=== PATIENT | female | born 1990 | race Caucasian/White ===

== ENCOUNTER 2017-03-16 18:59 | Outpatient (CLI) | payer MEDICAID ==
[~2017-03-16] VITALS: Ht 165.1 cm; Wt 104.5 kg
[~2017-03-16 18:59] MED LIST: IBUP100T9 PO
[2017-03-16 19:22] VITALS: BP 130/78
== END 2017-03-16 20:28 | disposition home or self-care (01) ==
LOC: LDOP 18:59
PROVIDERS: ATTEND Student in an Organized Health Care Education/Training Program
DX: O26.893 Other specified pregnancy related conditions, third trimester (principal); O99.333 Smoking (tobacco) complicating pregnancy, third trimester; R10.9 Unspecified abdominal pain; F17.200 Nicotine dependence, unspecified, uncomplicated; Z3A.36 36 weeks gestation of pregnancy
CPT/HCPCS: 59025; 81003; 87086; 99211; G0463

== ENCOUNTER 2017-04-12 08:50 | Inpatient (IN) | payer MEDICAID ==
[~2017-04-12] VITALS: Ht 165.1 cm; Wt 105.5 kg
[2017-04-13] MEDS ORDERED: OXYTOCIN 30U/ 0.9% NaCL 500ML 500 ML IV PRN ×3 (08:16)
[2017-04-13] MEDS ORDERED: D5%-LACTATED RINGERS 1,000 ML IV SCH (08:16)
[2017-04-13] MEDS ORDERED: OXYTOCIN 30U/ 0.9% NaCL 500ML 500 ML IV ONE (08:16)
[2017-04-13] MEDS ORDERED: FENTANYL PF 100 MCG/2ML IV PRN (08:30)
[2017-04-13] MEDS ORDERED: FENTANYL PF 100 MCG/2ML IVPush PRN (08:30)
[2017-04-13] MEDS: LACTATED RINGERS 1,000 ML IV SCH ×2 (08:33→13:10)
[2017-04-13 08:45] LABS: BASOPHILS # (AUTO) 0.02 x10^3/uL (0-0.1); BASOPHILS % (AUTO) 0 % (0-1); EOSINOPHILS # (AUTO) 0.06 x10^3/uL (0-0.4); EOSINOPHILS % (AUTO) 1 % (1-7); LYMPHOCYTES % (AUTO) 16 % (22-44); MD NO; MEAN CORPUSCULAR HEMOGLOBIN 30.5 pg (27.0-34.8); MEAN CORPUSCULAR HGB CONC 33.8 g/dL (32.4-35.8); MEAN CORPUSCULAR VOLUME 90.1 fL (80-100); MEAN PLATELET VOLUME 8.7 fL (7.4-10.4); MONOCYTES # (AUTO) 0.64 x10^3/uL (0.2-0.8); MONOCYTES % (AUTO) 5 % (2-9); NEUTROPHILS # (AUTO) 9.98 x10^3/uL (1.8-6.8); NEUTROPHILS % (AUTO) 79 % (42-75); PLATELET COUNT 160 x10^3/uL (130-400); RED BLOOD COUNT 3.48 x10^6/uL (3.82-5.3); RED CELL DISTRIBUTION WIDTH 13.1 % (9.6-15.2)
[2017-04-13] MEDS ORDERED: PLEASE ENTER HEIGHT AND WEIGHT MC SCH (09:00)
[2017-04-13] MEDS ORDERED: LACTATED RINGERS 1,000 ML IVBOLUS ONE ×2 (09:30)
[2017-04-13] MEDS ORDERED: MISOPROSTOL 200 MCG TABLET ONE (10:48)
[2017-04-13] MEDS ORDERED: NEWBORN KIT ONE (10:48)
[2017-04-13] MEDS ORDERED: LIDOCAINE 1%, 10ML ONE (10:49)
[2017-04-13] MEDS ORDERED: OXYTOCIN 30U/ 0.9% NaCL 500ML 500 ML ONE ×2 (10:49→10:50)
[2017-04-13] MEDS ORDERED: FENTANYL/BUPIV./NS/PF 250 ML EPIDCONT ONE (10:52)
[2017-04-13] MEDS ORDERED: BUPIVACAINE 0.25% ONE ×2 (10:52→15:53)
[2017-04-13] MEDS ORDERED: FENTANYL PF 100 MCG/2ML ONE ×2 (10:52→15:14)
[2017-04-13] MEDS ORDERED: FENTANYL/BUPIV./NS/PF 250 ML EPIDCONT SCH (12:17)
[2017-04-13] MEDS ORDERED: LACTATED RINGERS 1,000 ML IV SCH (12:17)
[2017-04-13] MEDS ORDERED: EPHEDRINE 50 MG/ML, 1ML IVPush PRN (12:30)
[2017-04-13] MEDS ORDERED: SODIUM CITRATE/CITRIC ACID 30 ML UDC PO ONE (12:30)
[2017-04-13] MEDS ORDERED: LACTATED RINGERS 1,000 ML IVBOLUS PRN (12:30)
[2017-04-13] MEDS ORDERED: ONDANSETRON 2MG/ML, 2ML IVPush PRN (12:30)
[2017-04-13] MEDS: ONDANSETRON 2MG/ML, 2ML IVPush PRN ×2 (16:38→20:51)
[2017-04-13] MEDS ORDERED: ONDANSETRON 2MG/ML, 2ML ONE (19:42)
[2017-04-13] MEDS ORDERED: SODIUM CITRATE/CITRIC ACID 30 ML UDC ONE (20:53)
[2017-04-13] MEDS ORDERED: CALCIUM CARBONATE 500 MG TAB.CHEW ONE (21:15)
[2017-04-13] MEDS ORDERED: IBUPROFEN 600 MG TABLET ONE (21:15)
[2017-04-13] MEDS ORDERED: IBUPROFEN 800 MG TABLET PO PRN (21:30)
[2017-04-13] MEDS ORDERED: METHYLERGONOVINE 0.2 MG/ML IM PRN (21:30)
[2017-04-13] MEDS ORDERED: ONDANSETRON 2MG/ML, 2ML IV PRN (21:30)
[2017-04-13] MEDS ORDERED: BISACODYL 10 MG SUPP PR PRN (21:30)
[2017-04-13] MEDS ORDERED: CARBOPROST TROMETHAMINE 250 MCG/ML, 1ML IM PRN (21:30)
[2017-04-13] MEDS ORDERED: METOCLOPRAMIDE 5 MG/ML, 2ML IV PRN (21:30)
[2017-04-13] MEDS ORDERED: MISOPROSTOL 200 MCG TABLET PO PRN (21:30)
[2017-04-13] MEDS ORDERED: GLYCERIN ADULT SUPP PR PRN (21:30)
[2017-04-13] MEDS ORDERED: ACETAMINOPHEN 325 MG TABLET PO PRN (21:30)
[2017-04-13] MEDS: OXYTOCIN 30U/ 0.9% NaCL 500ML 500 ML IV SCH (21:31)
[2017-04-13] MEDS: IBUPROFEN 600 MG TABLET PO PRN (22:20)
[2017-04-13] MEDS ORDERED: AMOXICILLIN/CLAV 1000-62.5MG TABLET ER.12H PO SCH (22:30)
[2017-04-13] MEDS: AMOXICILLIN/CLAV 875-125MG TABLET PO SCH (22:42)
[2017-04-13 23:02] LABS: RAPID INFLUENZA A Negative (Negative); RAPID INFLUENZA B Negative (Negative)
[2017-04-13 23:15] VITALS: BP 111/69
[2017-04-13] MEDS ORDERED: DIPHENHYDRAMINE 25 MG CAPSULE ONE (23:54)
[2017-04-13] MEDS ORDERED: DIPH,PERTUSS(ACELL),TET VAC/PF NC IM-VACC ONE (23:57)
[2017-04-14] MEDS ORDERED: DIPHENHYDRAMINE 25 MG CAPSULE PO PRN
[2017-04-14] MEDS: OXYcodone/APAP 5/325MG TABLET PO PRN ×6 (00:11→21:13)
[2017-04-14] MEDS ORDERED: DIPH,PERTUSS(ACELL),TET VAC/PF NC IM-VACC ONE (00:55)
[2017-04-14] MEDS ORDERED: FLU VACC QS2017-18 (36MOS+) UP/PF 0.5 ML IM-VACC ONE (01:00)
[2017-04-14 03:20] VITALS: BP 102/66
[2017-04-14] MEDS: IBUPROFEN 600 MG TABLET PO PRN ×3 (03:50→17:13)
[2017-04-14 06:15] LABS: MEAN CORPUSCULAR HEMOGLOBIN 31.1 pg (27.0-34.8); MEAN CORPUSCULAR HGB CONC 34.5 g/dL (32.4-35.8); MEAN CORPUSCULAR VOLUME 90.1 fL (80-100); PLATELET COUNT 173 x10^3/uL (130-400); RED BLOOD COUNT 3.34 x10^6/uL (3.82-5.3); RED CELL DISTRIBUTION WIDTH 12.8 % (9.6-15.2)
[2017-04-14 06:16] LABS: MEAN PLATELET VOLUME 8.8 fL (7.4-10.4)
[2017-04-14 06:34] LABS: BASOPHILS # (AUTO) 0.06 x10^3/uL (0-0.1); BASOPHILS % (AUTO) 0 % (0-1); EOSINOPHILS # (AUTO) 0.07 x10^3/uL (0-0.4); EOSINOPHILS % (AUTO) 0 % (1-7); LYMPHOCYTES # (AUTO) 2.55 x10^3/uL (1-3.4); LYMPHOCYTES % (AUTO) 14 % (22-44); MD SCAN; MONOCYTES # (AUTO) 1.15 x10^3/uL (0.2-0.8); MONOCYTES % (AUTO) 6 % (2-9); NEUTROPHILS # (AUTO) 14.35 x10^3/uL (1.8-6.8); NEUTROPHILS % (AUTO) 79 % (42-75)
[2017-04-14] MEDS: OXYTOCIN 30U/ 0.9% NaCL 500ML 500 ML IV SCH ×2 (07:22→17:22)
[2017-04-14 07:35] VITALS: BP 107/69
[2017-04-14] MEDS: DOCUSATE 100 MG CAPSULE PO PRN ×2 (08:15→21:13)
[2017-04-14] MEDS: PRENATAL VIT/IRON/FA 1 EACH TABLET PO SCH (08:15)
[2017-04-14] MEDS: AMOXICILLIN/CLAV 875-125MG TABLET PO SCH ×2 (09:21→21:13)
[2017-04-14] MEDS: FAMOTIDINE 20 MG TABLET PO SCH ×2 (09:21→21:13)
[2017-04-14] MEDS: CALCIUM CARBONATE 500 MG TAB.CHEW PO SCH ×3 (12:23→21:13)
[2017-04-14 13:00] VITALS: BP 108/71
[2017-04-14 17:06] VITALS: BP 98/97
[2017-04-14 20:25] VITALS: BP 122/78
[2017-04-15] MEDS: IBUPROFEN 600 MG TABLET PO PRN ×2 (03:03→10:06)
[2017-04-15] MEDS: OXYcodone/APAP 5/325MG TABLET PO PRN ×4 (03:03→16:36)
[2017-04-15] MEDS: OXYTOCIN 30U/ 0.9% NaCL 500ML 500 ML IV SCH ×2 (03:22→14:12)
[2017-04-15] MEDS: CALCIUM CARBONATE 500 MG TAB.CHEW PO SCH ×3 (05:55→16:36)
[2017-04-15 07:15] VITALS: BP 107/72
[2017-04-15] MEDS ORDERED: FLU VACC QS2017-18 (36MOS+) UP/PF 0.5 ML IM-VACC ONE (07:26)
[2017-04-15] MEDS: DOCUSATE 100 MG CAPSULE PO PRN (07:39)
[2017-04-15] MEDS: PRENATAL VIT/IRON/FA 1 EACH TABLET PO SCH (07:39)
[2017-04-15] MEDS: FAMOTIDINE 20 MG TABLET PO SCH (07:39)
[2017-04-15] MEDS: AMOXICILLIN/CLAV 875-125MG TABLET PO SCH (07:39)
[2017-04-15] MEDS ORDERED: AMOX1TAB64 PO (15:10)
[2017-04-15] MEDS ORDERED: IBUP-1223 PO (15:11)
== END 2017-04-15 18:19 | disposition home or self-care (01) | DRG 775 ==
LOC: LDIP 04-13 07:12 → 2NW 04-13 23:20
PROVIDERS: ADMIT Student in an Organized Health Care Education/Training Program; ATTEND Student in an Organized Health Care Education/Training Program
PROC: 10E0XZZ Delivery of Products of Conception, External Approach (ICD-10-PCS; principal; 2017-04-13)
PROC: 10907ZC Drainage of Amniotic Fluid, Therapeutic from Products of Conception, Via Natural or Artificial Opening (ICD-10-PCS; 2017-04-13)
PROC: 3E0R3BZ Introduction of Anesthetic Agent into Spinal Canal, Percutaneous Approach (ICD-10-PCS; 2017-04-13)
PROC: 00HU33Z Insertion of Infusion Device into Spinal Canal, Percutaneous Approach (ICD-10-PCS; 2017-04-13)
PROC: 3E0234Z Introduction of Serum, Toxoid and Vaccine into Muscle, Percutaneous Approach (ICD-10-PCS; 2017-04-14)
DX: O99.52 Diseases of the respiratory system complicating childbirth (principal); J01.90 Acute sinusitis, unspecified; O71.89 Other specified obstetric trauma; O48.0 Post-term pregnancy; J45.909 Unspecified asthma, uncomplicated; O69.81X0 Labor and delivery complicated by cord around neck, without compression, not applicable or unspecified; Z37.0 Single live birth; Z3A.40 40 weeks gestation of pregnancy; Z82.3 Family history of stroke; Z82.49 Family history of ischemic heart disease and other diseases of the circulatory system; Z83.3 Family history of diabetes mellitus; Z23 Encounter for immunization
CPT/HCPCS: 36415; 85025; 86850; 86900; 87400; 90686; 90715; J2405; J2590; J7120; J7121; Q0163

== ENCOUNTER 2017-10-06 21:53 | Emergency (ER) | payer MEDICAID ==
[~2017-10-06] VITALS: Ht 167.6 cm; Wt 99.5 kg
[~2017-10-06 21:53] MED LIST changes: +AMOX1TAB64 PO; +IBUP-1223 PO
[2017-10-06] MEDS ORDERED: DIPHENHYDRAMINE 50 MG/ML, 1ML ONE (21:58)
[2017-10-06] MEDS ORDERED: FAMOTIDINE 20 MG/2 ML ONE (21:58)
[2017-10-06] MEDS ORDERED: methylPREDNISolone SOD SUCC 125 MG/2 ML IVPush ONE (22:00)
[2017-10-06] MEDS ORDERED: EPINEPHRINE 1 MG/ML, 1ML SQ ONE (22:00)
[2017-10-06] MEDS ORDERED: SODIUM CHLORIDE 0.9% 1,000ML IVBOLUS ONE (22:00)
[2017-10-06] MEDS ORDERED: SODIUM CHLORIDE FLUSH 10ML SYR IVF ONE (22:00)
[2017-10-06] MEDS ORDERED: DIPHENHYDRAMINE 50 MG/ML, 1ML IVPush ONE (22:00)
[2017-10-06] MEDS ORDERED: FAMOTIDINE 20 MG/2 ML IVPush ONE (22:00)
[2017-10-06] MEDS ORDERED: methylPREDNISolone SOD SUCC 125 MG/2 ML ONE (22:08)
[2017-10-06] MEDS ORDERED: EPINEPHRINE 1 MG/ML, 1ML ONE (22:08)
[2017-10-06] MEDS ORDERED: ONDANSETRON 2MG/ML, 2ML ONE (22:08)
[2017-10-06] MEDS ORDERED: ONDANSETRON 2MG/ML, 2ML IVPush ONE (22:30)
[2017-10-07] MEDS ORDERED: ACETAMINOPHEN 500 MG TABLET ONE (00:10)
[2017-10-07] MEDS ORDERED: ACETAMINOPHEN 500 MG TABLET PO ONE (00:30)
[2017-10-07 02:22] VITALS: BP 96/53
== END 2017-10-07 02:24 | disposition home or self-care (01) ==
LOC: ED 23:59
DX: T78.04XA Anaphylactic reaction due to fruits and vegetables, initial encounter (principal)
CPT/HCPCS: 93005; 96374; 99291; J0171; J1200; J2405; J2930; J7030; S0028